=== PATIENT | female | born 2005 | race African-American/Black ===

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

== ENCOUNTER 2023-05-14 10:57 | Emergency (ER) | payer MEDICAID ==
[~2023-05-14] VITALS: Ht 162.6 cm; Wt 58.2 kg
[2023-05-14 11:34] LABS: Urine Bacteria NONE SEEN /hpf (None Seen); Urine Blood 2+ /uL (Negative); Urine Clarity Clear (Clear); Urine Protein, UAD Negative (Negative); Urine Specific Gravity 1.011 (1.001-1.035); Urine Urobilinogen Normal (Negative); Urine WBC 1 /hpf (0 - 5)
[2023-05-14 11:38] LABS: Hemoglobin 10.9 g/dL (12.2-16.2); Red Cell Distribution Width 17.3 % (11.8-14.3)
[2023-05-14 11:39] LABS: Urine Color STRAW (Yellow)
[2023-05-14 11:40] LABS: Basophils # (auto) 0 10 ^3/uL (0-0.2); Basophils % (auto) 0.5 % (0.0-2.0); Eosinophils # (auto) 0 10 ^3/uL (0-0.8); Eosinophils % (auto) 0.5 % (0.0-7.0); Hematocrit 34.6 % (36.0-46.0); Lymphocytes # (auto) 1.7 10 ^3/uL (0.4-5.4); Lymphocytes % (auto) 21.4 % (10.0-50.0); Mean Corpuscular Hemoglobin 24.5 pg (28.0-32.0); Mean Corpuscular Hgb Conc. 31.4 g/dL (32.0-36.0); Mean Corpuscular Volume 77.9 fL (80.0-100.0); Monocytes # (auto) 0.5 10 ^3/uL (0-1.3); Monocytes % (auto) 6.1 % (0.0-12.0); Neutrophils # (auto) 5.8 10 ^3/uL (1.6-8.6); Neutrophils % (auto) 71.5 % (37.0-80.0); Nucleated Red Blood Cells % 0.2 %; Red Blood Cells 4.44 10^6/uL (4.0-5.20); White Blood Cell 8.1 10^3/uL (4.4-10.8)
[2023-05-14 11:52] LABS: Albumin 4.6 g/dL (3.2-4.8); Alkaline Phosphatase 68 U/L (46-116); Anion Gap 5 (5-15); Aspartate Aminotransferase 13 U/L (13-40); BUN/Creatinine Ratio 15.4 (10.0-20.0); Bilirubin, Total 0.5 mg/dL (0.2-1.0); Blood Urea Nitrogen 10 mg/dL (9-23); Calcium 9.1 mg/dL (8.7-10.4); Carbon Dioxide 25 mmol/L (20-30); Chloride 107 mmol/L (98-107); Glucose 82 mg/dL (74-106); Sodium 137 mmol/L (136-145); Total Protein 7.5 g/dL (5.7-8.2)
[2023-05-14 11:58] LABS: Alanine Aminotransferase < 9 U/L (7-40)
[2023-05-14 13:26] VITALS: BP 119/64; PULSE 75; RESP 16; TEMP 98.4; O2SAT 98
[2023-05-14] MEDS ORDERED: IBUPROFEN 600 MG TAB PO ONE (17:00)
[2023-05-14] MEDS ORDERED: ACETAMINOPHEN 500 MG TAB PO ONE (17:00)
[2023-05-14] MEDS ORDERED: ONDANSETRON ODT 4 MG TAB PO ONE (17:00)
== END 2023-05-14 17:10 | disposition left against medical advice (07) ==
LOC: ER 10:57
DX: N93.9 Abnormal uterine and vaginal bleeding, unspecified (principal); M54.89 Other dorsalgia; R10.2 Pelvic and perineal pain; Z53.21 Procedure and treatment not carried out due to patient leaving prior to being seen by health care provider
CPT/HCPCS: 36415; 80053; 81001; 81025; 85025